=== PATIENT | female | born 1950 | race Caucasian/White ===

== ENCOUNTER → 2018-01-16 | Outpatient (CLI) | payer OTHER ==
[2018-01-16 15:42] LABS: CPK CREATINE PHOSPHOKINASE 64 U/L (26-192)
[2018-01-16 15:42] LABS: TROPONIN I < 0.02 NG/ML (< 0.10)
== END ==
LOC: M LAB 14:54
DX: R07.9 Chest pain, unspecified (principal)

== ENCOUNTER → 2018-02-10 | Outpatient (REF) | payer OTHER ==
[2018-02-10 10:42] LABS: INFLUENZA A AMPLIFICATION NEGATIVE (NEGATIVE); INFLUENZA B AMPLIFICATION NEGATIVE (NEGATIVE)
== END ==
LOC: M LAB REF 10:07
DX: J11.1 Influenza due to unidentified influenza virus with other respiratory manifestations (principal)
CPT/HCPCS: 87502

== ENCOUNTER 2018-04-28 07:43 | Emergency (ER) | payer OTHER ==
[~2018-04-28] VITALS: Ht 160 cm; Wt 50.6 kg
[2018-04-28 07:43] VITALS: BP 167/99
[2018-04-28] MEDS ORDERED: ATOR1TAB19 PO (07:50)
[2018-04-28] MEDS ORDERED: LOSA50TA5 PO (07:50)
[2018-04-28] MEDS ORDERED: ULTR50TA8 PO (08:43)
[2018-04-28] MEDS ORDERED: NAPR-50 PO (08:43)
[2018-04-28] MEDS ORDERED: ACET-683 PO (08:43)
[2018-04-28] MEDS ORDERED: NAPROXEN 250 MG TAB PO ONE (08:45)
== END 2018-04-28 08:52 | disposition home or self-care (01) ==
LOC: M ED 07:43
DX: M65.812 Other synovitis and tenosynovitis, left shoulder (principal)

== ENCOUNTER → 2019-10-01 | Outpatient (CLI) | payer OTHER ==
[~2019-10-01] MED LIST: ACET-683 PO; ASPI81CH33 PO; ATOR1TAB19 PO; HYDR12.55 PO; LOSA50TA5 PO; NAPR-837 PO; ULTR50TA8 PO
[2019-10-01 13:34] LABS: BASO # 0.1 10^3/uL (0.0-0.2); BASO % 0.7 % (0.0-1.0); EOS % 0.3 % (0.0-3.0); HEMATOCRIT 51.4 % (36.0-47.0); HEMOGLOBIN 15.8 g/dl (12.0-15.5); LYMPH # 1.2 10^3/uL (1.5-5.0); LYMPH % 12.1 % (24.0-44.0); MEAN CORPUSCULAR HEMOGLOBIN 26.8 pg (27.0-33.0); MEAN CORPUSCULAR HGB CONC 30.7 g/dl (32.0-36.5); MEAN CORPUSCULAR VOLUME 87.3 fl (80.0-96.0); MONO # 1.2 10^3/uL (0.0-0.8); MONO % 11.6 % (0.0-5.0); NEUTROPHILS # 7.5 10^3/uL (1.5-8.5); NEUTROPHILS % 74.7 % (36.0-66.0); PLATELET COUNT, AUTOMATED 321 10^3/uL (150-450); RED BLOOD COUNT 5.89 10^6/uL (4.00-5.40); WHITE BLOOD COUNT 10.1 10^3/uL (4.0-10.0)
[2019-10-01 14:11] LABS: ALT/SGPT 49 U/L (12-78); BILIRUBIN,TOTAL 1.1 MG/DL (0.2-1.0); BLOOD UREA NITROGEN 39 MG/DL (7-18); CALCIUM LEVEL 9.1 MG/DL (8.8-10.2); CARBON DIOXIDE LEVEL 33 MEQ/L (21-32); CHLORIDE LEVEL 98 MEQ/L (98-107); CREATININE FOR GFR 0.83 MG/DL (0.55-1.30); GLOMERULAR FILTRATION RATE > 60.0 (>39); GLUCOSE, FASTING 100 MG/DL (70-100); NT-PRO BNP 2292 PG/ML (<125); POTASSIUM SERUM 4.9 MEQ/L (3.5-5.1); SODIUM LEVEL 137 MEQ/L (136-145); TOTAL PROTEIN 6.6 GM/DL (6.4-8.2)
--- NOTE | 2019-10-01 14:32 | REP ---
CHEST, TWO VIEWS: There is no evidence of acute infiltrate. No pleural effusion is seen. The heart is normal in size. The mediastinal silhouette is unremarkable. The visualized osseous structures are intact. There is mild calcification and tortuosity of the thoracic aorta. IMPRESSION: No acute pulmonary disease. Electronically Signed by Noah Wang MD 10/04/2019 09:42 A
== END ==
LOC: M LAB 12:32 → ENRESERV 15:20
PROVIDERS: ATTEND Physician Assistant Medical
DX: R06.02 Shortness of breath (principal); R60.9 Edema, unspecified